=== PATIENT | female | born 1985 | race Caucasian/White ===

== ENCOUNTER 2020-11-16 10:36 | Emergency (ER) | payer OTHER ==
[~2020-11-16] VITALS: Ht 167.6 cm; Wt 66.7 kg
[2020-11-16 10:59] VITALS: BP 101/52
--- NOTE | 2020-11-16 11:04 | NUR ---
PT TO WAIT IN LOBBY.
[2020-11-16 13:00] LABS: APPEARANCE,URINE CLEAR (CLEAR); BILIRUBIN,URINE NEGATIVE (NEGATIVE); BLOOD, URINE 3+ (NEGATIVE); COLOR,URINE YELLOW (YELLOW); LEUKOCYTE ESTERASE ,URINE NEGATIVE (NEGATIVE); NITRITE, URINE NEGATIVE (NEGATIVE); UGLUCOSE NEGATIVE (NEGATIVE)
[2020-11-16 13:12] LABS: RBC,URINE 20-50 /HPF (0-5)
--- NOTE | 2020-11-16 15:45 | NUR ---
PT PROVIDED WITH JUDY PETER IN THE R N[facility]
--- NOTE | 2020-11-16 15:50 | NUR ---
34 Y/O FEMALE C/O VAGINAL BLEEDING X3DAYS, STATES SHE WAS SEEN BY OB 11/05/20 AND NO HEARTBEAT AUSCULTATED. PT REFERRED HERE BY OB FOR RH. DENIES PAIN, DENIES N/V, DENIES FEVER/CHILLS. DENIES PMH NKA
[2020-11-16 16:03] VITALS: BP 112/64
--- NOTE | 2020-11-16 16:03 | NUR ---
Patient discharged with v/s stable. Written and verbal after care instructions given and explained. Patient verbalized understanding. Ambulatory with steady gait. All questions addressed prior to discharge. Advised to follow up with PMD.
== END 2020-11-16 16:03 | disposition home or self-care (01) ==
LOC: MED 10:36
DX: O03.9 Complete or unspecified spontaneous abortion without complication (principal)
CPT/HCPCS: 36415; 36430; 81001; 86886; 86900; 86901; 87086; 99285; J2790